=== PATIENT | male | born 1990 | race Asian ===

== ENCOUNTER 2021-10-18 19:33 | Emergency (ER) | payer OTHER ==
[2021-10-18 19:48] VITALS: BP 148/98; PULSE 80; TEMP 98.4; BMI 21.9
[2021-10-18] MEDS ORDERED: IBUPROFEN 600 MG TABLET (FP) PO ONE ×3 (20:40→20:48)
[2021-10-18] MEDS ORDERED: SODIUM CHLORIDE 0.9% 500 ML INFUS.BAG IV ONE (20:40)
[2021-10-18] MEDS ORDERED: ACETAMINOPHEN 325 MG TABLET (FP) PO ONE (20:40)
[2021-10-18] MEDS ORDERED: ACETAMINOPHEN 325 MG TABLET (FP) ONE ×2 (20:44→20:47)
[2021-10-18 21:03] LABS: BASO % 0.3 % (0-2.0); EOS % 1.7 % (0-4.5); HEMATOCRIT 45.8 % (35.4-49); HEMOGLOBIN 15.5 GM/dL (11.7-16.9); MCH 29.3 pg (25.7-33.7); MCHC 33.9 g/dl (32.0-35.9); MEAN CELL VOLUME 86.5 fl (80-96); MEAN PLT VOLUME 7.7 fl (7.5-11.1); MONO % 7.2 % (3.8-10.2); NEUT % 69.8 % (42.8-82.8); PLATELET COUNT 323 10^3/uL (134-434); RBC 5.29 M/mm3 (4.00-5.60); RDW 13.4 % (11.9-15.9); WHITE BLOOD COUNT 11.2 K/mm3 (4.0-10.0)
[2021-10-18 21:24] LABS: BLOOD UREA NITROGEN 14.3 mg/dL (7-18)
[2021-10-18 21:27] LABS: CREATININE 0.9 mg/dL (0.55-1.3)
== END 2021-10-18 22:11 | disposition home or self-care (01) ==
LOC: JER 19:33
DX: R51.9 Headache, unspecified (principal); M79.10 Myalgia, unspecified site
CPT/HCPCS: 0241U-QW; 36415; 80048; 85025; 87807; 99283-25; C9803-CS; U0003; U0005